=== PATIENT | female | born 1950 | race Caucasian/White ===

== ENCOUNTER 2018-03-27 10:13 | Day surgery (SDC) | payer MEDICARE, MEDICAID ==
[2018-03-27] MEDS ORDERED: Lactated Ringers 1,000 ML IV SCH (10:30)
[2018-03-27] MEDS: Cyclopentolate 1% Opth Soln 2 ML Bottle EYELF SCH ×3 (10:43→11:17)
[2018-03-27] MEDS: Phenylephrine 10% Ophth Soln 5 ML Bot EYELF SCH ×3 (10:48→11:22)
[2018-03-27] MEDS ORDERED: Moxifloxacin 0.5% Ophth Soln 3 ML Bottle EYELF ONE (11:00)
[2018-03-27] MEDS ORDERED: Sodium Chloride 0.9% 5 ML Syringe FLUSH PRN (11:15)
[2018-03-27] MEDS ORDERED: Water For Irrigation,Sterile 1,500 ML Container IRR ONE (12:09)
[2018-03-27] MEDS ORDERED: Balanced Salt Solution Ophth Irrig 15 ML Bottle EYELF ONE (12:09)
[2018-03-27] MEDS ORDERED: Balanced Salt Solution Plus Ophth Irrig 500 ML Bottle IOCULAR ONE (12:09)
[2018-03-27] MEDS ORDERED: Carbachol 0.01% Intraocular 1.5 ML Vial EYELF ONE (12:10)
[2018-03-27] MEDS ORDERED: EPINEPHrine 1 MG/ML SDV ONE (12:10)
[2018-03-27] MEDS ORDERED: Lidocaine 1% 10 ML MDV INJECT ONE (12:12)
[2018-03-27] MEDS ORDERED: Dexamethasone/Neomycin/Polymyxin B Ophth Oint 3.5 GM Tube EYELF ONE (12:12)
[2018-03-27] MEDS ORDERED: Lidocaine 2% with EPINEPHrine 1:100,000 20 ML MDV INJECT ONE (12:12)
[2018-03-27] MEDS ORDERED: Tetracaine HCl/PF 0.5% 4 ML Bottle EYEBOTH ONE (12:13)
[2018-03-27] MEDS ORDERED: Hyaluronate Sodium 1% 0.85 ML Syringe IOCULAR ONE (12:13)
--- NOTE | 2018-03-28 09:03 | OR ---
DATE OF SURGERY: 03/27/2018 SURGEON: Hu Casanova MD PREOPERATIVE DIAGNOSIS: Cataract, left eye. POSTOPERATIVE DIAGNOSIS: Cataract, left eye. OPERATION PERFORMED: Phacoemulsification with posterior chamber lens insertion, left eye. HISTORY: The patient presents at this time with blurred vision of the left eye, states that she is having difficulty seeing to drive. The vision for the left eye is 20/100 -1. The left lens has a 3+ nuclear sclerosis with 2+ cortical change and a 2+ posterior subcapsular cataract findings as well. 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 FINDINGS: The patient was taken to the operating room where appropriate anesthesia, sedation and monitoring were provided. A retrobulbar block was given on the left side. The eye was massaged and was found to be appropriately soft. The eye and eyelids were then prepped and draped in the usual sterile manner. A lid speculum was placed. A micro sharp blade was used to enter the anterior chamber inside the limbus inferior-temporally. Xylocaine was irrigated into the eye at this site. Healon was irrigated into the eye through this site. Then using a 2.85 mm corneal blade an entry was made into the anterior chamber just inside the limbus temporally. Healon was again irrigated into the eye. Then using a cystitome, the anterior capsulorrhexis was created. The lens nucleus was hydrodissected using a 27 gauge cannula and balanced salt solution. The phacoemulsification unit was introduced through the temporal site and the Yuriy spatula through the inferior temporal site. In so doing, the lens nucleus was phacoemulsified. The cortical fragments of the lens were removed using the irrigation aspiration unit. The posterior capsule was polished. Healon was irrigated into the eye. The posterior chamber lens was inserted and rotated into position inside the capsular bag. The Healon was irrigated out of the eye. Miostat was irrigated into the eye and the pupil rounded nicely. A single interrupted 10-0 Nylon suture was placed through the temporal corneal incision site. Balanced salt solution was irrigated into the eye. The wound was tested and found to be tight. Maxitrol ointment was placed into the patient's left eye. The eyelids were closed and an eye patch and burgos shield were placed. The patient left the operating room in good condition. /[id number]/MODL
== END 2018-03-27 13:05 | disposition home or self-care (01) ==
LOC: KA.SDS 10:13
PROVIDERS: ATTEND Ophthalmology
DX: H26.9 Unspecified cataract (principal); M19.90 Unspecified osteoarthritis, unspecified site; K21.9 Gastro-esophageal reflux disease without esophagitis; I10 Essential (primary) hypertension; G47.00 Insomnia, unspecified; Z79.899 Other long term (current) drug therapy; Z87.891 Personal history of nicotine dependence
CPT/HCPCS: 00142; A9270-GY; C1780; J0171; J7120

== ENCOUNTER 2020-12-08 07:22 | Observation (INO) | payer MEDICARE, MEDICAID ==
[2020-12-08] MEDS ORDERED: Sodium Chloride 0.9% 1,000 ML IV ONE (08:01)
[2020-12-08 08:15] LABS: ANION GAP 15.3 mmol/L (5-15); CHLORIDE,CL 103 mmol/L (98-107); SODIUM,NA 139 mmol/L (136-145)
--- NOTE | 2020-12-08 08:15 | EDM.PDOC ---
ED HPI GENERAL MEDICAL PROBLEM - General Chief Complaint: General Stated Complaint: SHAKY/CHILLS Time Seen by Provider: 12/08/20 07:52 Source of Information: Reports: Patient History Limitations: Reports: No Limitations - History of Present Illness INITIAL COMMENTS - FREE TEXT/NARRATIVE: Patient presents with feeling "cold". She put extra blankets on her bed and bundled up but couldn't get warm. She says she keeps her house at 88 degrees. She doesn't think she has had a fever. She hasn't really been out of her house for two weeks. She often doesn't sleep well and gets up around 0200 to sit at her table and play games on her phone then go back to bed. She did that last night too. She doesn't drink enough water, mostly soda. - Related Data Allergies Allergy/AdvReac Type Severity Reaction Status Date / Time oxycodone Allergy Nausea and Verified 12/08/20 07:26 Vomiting Home Meds: Home Meds Naproxen 500 mg PO Q12H PRN 03/23/18 [History] Pantoprazole Sodium [Protonix] 40 mg PO ACBREAKFAST 03/23/18 [History] amLODIPine Besylate [Amlodipine Besylate] 10 mg PO DAILY 03/23/18 [History] atenoloL [Atenolol] 50 mg PO DAILY 03/23/18 [History] Past Medical History HEENT History: Reports: Cataract, Impaired Vision Cardiovascular History: Reports: Hypertension Gastrointestinal History: Reports: Chronic Diarrhea, GERD, Irritable Bowel Syndrome Musculoskeletal History: Reports: Other (See Below) Other Musculoskeletal History: scoliosis Neurological History: Reports: None - Past Surgical History Head Surgeries/Procedures: Reports: None HEENT Surgical History: Reports: None Cardiovascular Surgical History: Reports: None GI Surgical History: Reports: Cholecystectomy Neurological Surgical History: Reports: Scoliosis Musculoskeletal Surgical History: Reports: Other (See Below) Other Musculoskeletal Surgeries/Procedures:: 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 Social & Family History - Family History Family Medical History: No Pertinent Family History - Caffeine Use Caffeine Use: Reports: Coffee, Soda Other Caffeine Use: pepsi zero ED ROS GENERAL - Review of Systems Review Of Systems: See Below Constitutional: Reports: Chills. Denies: Fever HEENT: Denies: Ear Pain, Throat Pain, Vision Change Respiratory: Denies: Shortness of Breath, Cough Cardiovascular: Denies: Chest Pain, Lightheadedness, Syncope Endocrine: Denies: Fatigue GI/Abdominal: Reports: Diarrhea (chronic for 30 years). Denies: Abdominal Pain, Nausea, Vomiting : Denies: Dysuria Musculoskeletal: Reports: No Symptoms Skin: Denies: Cyanosis, Jaundice, Mottled, Pallor, Diaphoresis Neurological: Denies: Confusion, Dizziness, Headache, Seizure, Syncope, Trouble Speaking, Difficulty Walking Psychiatric: Denies: Agitation, Anxiety, Confusion ED EXAM, GENERAL - Physical Exam Exam: See Below Exam Limited By: No Limitations General Appearance: Alert, WD/WN, No Apparent Distress Eye Exam: Bilateral Eye: EOMI, Normal Inspection, PERRL Ears: Normal External Exam, Hearing Grossly Normal Nose: Normal Inspection, No Blood Throat/Mouth: Normal Lips, Normal Voice, No Airway Compromise, Other (missing several teeth) Head: Atraumatic, Normocephalic Neck: Normal Inspection, Full Range of Motion Respiratory/Chest: No Respiratory Distress, No Accessory Muscle Use, Crackles (slight in left base). No: Rhonchi, Wheezing, Stridor, Accessory Muscle Use Cardiovascular: Regular Rate, Rhythm, No Murmur Peripheral Pulses: 1+: Posterior Tibial (L), Posterior Tibial (R), 2+: Radial (L), Radial (R) GI/Abdominal: Normal Bowel Sounds, Soft, Non-Tender, No Organomegaly, No Distention, No Abnormal Bruit Back Exam: Normal Inspection, Full Range of Motion Extremities: Normal Inspection, Normal Range of Motion, Non-Tender, No Pedal Edema, Normal Capillary Refill Neurological: Alert, Oriented, Normal Cognition, No Motor/Sensory Deficits Psychiatric: Normal Affect, Normal Mood Skin Exam: Warm, Dry, Intact, Normal Color, No Rash Course - Vital Signs Last Recorded V/S: Last Vital Signs Temp 98.9 F 12/08/20 07:46 Pulse 93 12/08/20 09:32 Resp 22 H 12/08/20 09:32 BP 120/78 12/08/20 09:32 Pulse Ox 97 12/08/20 09:32 - Orders/Labs/Meds Orders: Active Orders 24 hr Category Date Time Status Patient Status [ADT] Routine ADT 12/08/20 10:42 Ordered EKG Documentation Completion [RC] ASDIRECTED Care 12/08/20 07:42 Active Chest 1V Frontal [CR] Routine Exams 12/08/20 Ordered Isolation [COMM] Routine Oth 12/08/20 08:09 Ordered EKG 12 Lead [EK] Stat Ther 12/08/20 07:42 Ordered Labs: Laboratory Tests 12/08/20 12/08/20 12/08/20 Range/Units 07:45 07:45 08:08 WBC 13.14 H (5.00-10.00) 10^3/uL RBC 4.87 (3.80-5.50) 10^6/uL Hgb 14.6 (12.0-16.0) g/dL Hct 44.6 (37.0-47.0) % MCV 91.6 (82.0-92.0) fL MCH 30.0 (27.0-31.0) pg MCHC 32.7 (32.0-36.0) g/dL RDW 13.2 (11.5-14.5) % Plt Count 284 (150-400) 10^3/uL MPV 10.0 (7.4-10.4) fL Immature Gran % (Auto) 0.2 (0.0-5.0) % Neut % (Auto) 70.1 H (50.0-70.0) % Lymph % (Auto) 20.2 (20.0-40.0) % [place] % (Auto) 6.8 (2.0-8.0) % Eos % (Auto) 2.4 (1.0-3.0) % Baso % (Auto) 0.3 (0.0-1.0) % Neut # (Auto) 9.22 H (2.50-7.00) 10^3/uL Lymph # (Auto) 2.66 (1.00-4.00) 10^3/uL [place] # (Auto) 0.89 H (0.10-0.80) 10^3/uL Eos # (Auto) 0.31 H (0.10-0.30) 10^3/uL Baso # (Auto) 0.04 (0.00-0.10) 10^3/uL Immature Gran # (Auto) 0.02 (0.00-0.50) 10^3/uL Sodium 139 (136-145) mmol/L Potassium 3.2 L (3.5-5.1) mmol/L Chloride 103 (98-107) mmol/L Carbon Dioxide 23.9 (21.0-32.0) mmol/L Anion Gap 15.3 H (5-15) mmol/L BUN 12 (7-18) mg/dL Creatinine 0.70 (0.51-1.17) mg/dL Est Cr Clr Drug Dosing 55.25 mL/min Estimated GFR (MDRD) > 60 mL/min Glucose 128 (70-140) mg/dL Calcium 9.0 (8.7-10.3) mg/dL Specimen Type Urine Color (YELLOW) Urine Appearance (CLEAR) Urine pH (5.0-9.0) Ur Specific [place] (1.005-1.030) Urine Protein (NEGATIVE) mg/dL Urine Glucose (UA) (NEGATIVE) mg/dL Urine Ketones (NEGATIVE) mg/dL Urine Occult Blood (NEGATIVE) Urine Nitrite (NEGATIVE) Urine Bilirubin (NEGATIVE) Urine Urobilinogen (0.2-1.0) E.U./dL Ur Leukocyte Esterase (NEGATIVE) Urine RBC (0-5) /HPF Urine WBC (0-5) /HPF Ur Epithelial Cells /LPF Urine Bacteria (NONE TO FEW) /HPF Urine Mucus (NEGATIVE) /LPF SARS CoV-2 RNA Rapid ANASTASIIA Negative (NEGATIVE) 12/08/20 Range/Units 09:10 WBC (5.00-10.00) 10^3/uL RBC (3.80-5.50) 10^6/uL Hgb (12.0-16.0) g/dL Hct (37.0-47.0) % MCV (82.0-92.0) fL MCH (27.0-31.0) pg MCHC (32.0-36.0) g/dL RDW (11.5-14.5) % Plt Count (150-400) 10^3/uL MPV (7.4-10.4) fL Immature Gran % (Auto) (0.0-5.0) % Neut % (Auto) (50.0-70.0) % Lymph % (Auto) (20.0-40.0) % [place] % (Auto) (2.0-8.0) % Eos % (Auto) (1.0-3.0) % Baso % (Auto) (0.0-1.0) % Neut # (Auto) (2.50-7.00) 10^3/uL Lymph # (Auto) (1.00-4.00) 10^3/uL [place] # (Auto) (0.10-0.80) 10^3/uL Eos # (Auto) (0.10-0.30) 10^3/uL Baso # (Auto) (0.00-0.10) 10^3/uL Immature Gran # (Auto) (0.00-0.50) 10^3/uL Sodium (136-145) mmol/L Potassium (3.5-5.1) mmol/L Chloride (98-107) mmol/L Carbon Dioxide (21.0-32.0) mmol/L Anion Gap (5-15) mmol/L BUN (7-18) mg/dL Creatinine (0.51-1.17) mg/dL Est Cr Clr Drug Dosing mL/min Estimated GFR (MDRD) mL/min Glucose (70-140) mg/dL Calcium (8.7-10.3) mg/dL Specimen Type Urinvoid Urine Color Yellow (YELLOW) Urine Appearance Clear (CLEAR) Urine pH 7.0 (5.0-9.0) Ur Specific [place] 1.020 (1.005-1.030) Urine Protein Negative (NEGATIVE) mg/dL Urine Glucose (UA) Negative (NEGATIVE) mg/dL Urine Ketones Negative (NEGATIVE) mg/dL Urine Occult Blood Trace-intact H (NEGATIVE) Urine Nitrite Negative (NEGATIVE) Urine Bilirubin Negative (NEGATIVE) Urine Urobilinogen 0.2 (0.2-1.0) E.U./dL Ur Leukocyte Esterase Negative (NEGATIVE) Urine RBC 5-10 H (0-5) /HPF Urine WBC 5-10 H (0-5) /HPF Ur Epithelial Cells Moderate H /LPF Urine Bacteria Few (NONE TO FEW) /HPF Urine Mucus Rare H (NEGATIVE) /LPF SARS CoV-2 RNA Rapid ANASTASIIA (NEGATIVE) Meds: Medications Discontinued Medications Generic Name Dose Route Start Last Admin Trade Name Freq PRN Reason Stop Dose Admin Sodium Chloride 1,000 mls @ 999 mls/hr 12/08/20 08:01 12/08/20 07:50 Normal Saline IV 12/08/20 09:01 999 mls/hr .BOLUS ONE Administration - Re-Assessments/Exams Free Text/Narrative Re-Assessment/Exam: 12/08/20 08:15 A few minutes after arrival, patient was sitting on the bedside commode talking with the nurse. Abruptly, the nurse noticed she stopped talking and slowly slumped to one side. She didn't respond so tried a sternal rub and pushed the code button for help. Sats, pulse and breathing remained stable. Patient slowly came around to responding again after about a minute. This was just before I arrived and patient has been alert and responsive since then. 12/08/20 08:21 EKG is NSR. 12/08/20 09:03 CXR shows no acute process. 12/08/20 10:38 UA is normal. Head CT is negative for acute pathology. I discussed case with Dr. Moss who agrees with plan to admit for observation. Discussed findings and plan with patient who agrees as well. She is stable. 12/08/20 10:44 Please use this for admission H and P. Departure - Departure Time of Disposition: 10:37 Disposition: Refer to Observation Condition: Good Clinical Impression: Chills (without fever), Unresponsive episode Leukocytosis, unspecified Qualifiers: Leukocytosis type: unspecified Qualified Code(s): D72.829 - Elevated white blood cell count, unspecified - Discharge Information Referrals: Maggie Gilliam MD [Primary Care Provider] - Forms: ED Department Discharge Sepsis Event Note (ED) - Evaluation Sepsis Screening Result: No Definite Risk - Focused Exam Vital Signs: Vital Signs Temp Temp Pulse Resp BP BP Pulse Ox 12/08/20 09:32 93 22 H 120/78 97 12/08/20 09:15 83 123/61 12/08/20 08:48 89 17 110/46 L 91 L 12/08/20 08:30 83 20 125/59 L 96 12/08/20 08:16 81 20 121/64 95 12/08/20 08:00 88 17 110/67 94 L 12/08/20 07:46 98.9 F 91 20 88/47 L 93 L 12/08/20 07:30 108 H 22 H 103/73 12/08/20 07:26 96.6 F L 110 H 18 99/57 L 96 - My Orders Last 24 Hours: My Active Orders 12/08/20 Chest 1V Frontal [CR] Routine 12/08/20 07:42 EKG Documentation Completion [RC] ASDIRECTED EKG 12 Lead [EK] Stat 12/08/20 08:09 Isolation [COMM] Routine 12/08/20 10:42 Patient Status [ADT] Routine - Assessment/Plan Last 24 Hours: My Active Orders 12/08/20 Chest 1V Frontal [CR] Routine 12/08/20 07:42 EKG Documentation Completion [RC] ASDIRECTED EKG 12 Lead [EK] Stat 12/08/20 08:09 Isolation [COMM] Routine 12/08/20 10:42 Patient Status [ADT] Routine
--- NOTE | 2020-12-08 09:48 | CT ---
[id number] CT/CT Head WO IV EXAM: CT Head WO IV CLINICAL DATA: UNRESPONSIVE EPISODE COMPARISON: CORRELATION IS MADE WITH THE MRI OF 2004 FINDINGS: There is no mass or mass effect. There is no hemorrhage or hydrocephalus. There are no extra-axial fluid collections. There are no sites of abnormal attenuation. IMPRESSION: NO PLAIN CT EVIDENCE OF ACUTE INTRACRANIAL PROCESS. Aroldo Nick MD 12/08/20 [id number] Thank you for allowing us to participate in the care of your patient.
[2020-12-08] MEDS: Sodium Chloride 0.9% 1,000 ML IV SCH ×2 (11:32→20:21)
[2020-12-08] MEDS ORDERED: Loratadine 10 MG Tab PO ONE (17:38)
[2020-12-09] MEDS: Sodium Chloride 0.9% 1,000 ML IV SCH (04:28)
[2020-12-09] MEDS: Pantoprazole 40 MG Tab.CR ** OWN MED PO SCH ×2 (06:24→06:32)
[2020-12-09 07:43] LABS: ANION GAP 12.3 mmol/L (5-15); CHLORIDE,CL 108 mmol/L (98-107); SODIUM,NA 142 mmol/L (136-145)
[2020-12-09] MEDS ORDERED: Potassium Chloride 20 MEQ Tab.ER PO ONE (08:50)
[2020-12-09] MEDS ORDERED: AMLODIPINE BESYLATE 10 MG PO SCH (09:00)
[2020-12-09] MEDS ORDERED: ATENOLOL 50 MG PO SCH (09:00)
--- NOTE | 2020-12-09 09:09 | PCM.DCSUM1 ---
Discharge Summary - Hospital Course Free Text/Narrative:: Admission Date: 12/08/2020 Discharge Date: 12/09/2020 Disposition: Home, Self Care Admission Diagnoses: Chills Leukocytosis Unresponsive episode Hypokalemia Discharge Diagnoses: Chills - Resolved Leukocytosis - Resolved, no evidence of infection. Unresponsive episode - No further occurrence, telemetry unremarkable - Bilateral carotid artery U/S results pending at time of discharge Hypokalemia - Given one dose of potassium chloride 40 mEq PO x 1 dose prior to discharge - Will follow-up with [facility] as outpatient Secondary Diagnoses: HTN - Continue amlodipine 10 mg PO daily - Continue atenolol 50 mg PO daily Acid Reflux - Continue pantoprazole 40 mg PO daily Osteoarthritis - Continue naproxen 500 mg PO BID PRN Medication Changes: None CODE STATUS: Full Code Hospital Course: Devi presented to the emergency department on 12/08 for chills. She states she has had chills off and on for the past several months but nothing as severe as it was on 12/08. She noted some dizziness, which is chronic, but no other symptoms. In the ER, prior to evaluation by provider, she was sitting on the commode, not straining, and had an unresponsive episode where she slumped over to the side for approximately 10 seconds. She reportedly did not respond to sternal rub. She quickly came to. She was breathing and had a pulse during the entire episode. When I asked her about this episode she states "I just got real tired and thought to myself 'I should just go to sleep' and the next thing I knew I was waking up". No focal deficits. In the ER she was noted to have a leukocytosis of 13 without fever. CXR negative, UA negative, COVID negative, influenza A/B negative. EKG NSR. Head CT negative. Potassium slightly low at 3.2. She was started on IVF's and admitted on telemetry for observation due to the unresponsive episode. Overnight there was no issues. Telemetry unremarkable. She states she was up nearly every hours to urinate due to the IVF's. No further unresponsive episodes. She is a former smoker, having quit around 3-4 years ago. She will have bilateral carotid artery U/S prior to discharge. Diagnosis: Stroke: No Modified [place] Scale: No Symptoms at All Modified Mauro Scale Score: 0 - Discharge Data Discharge Date: 12/09/20 Discharge Disposition: Home, Self-Care 01 Condition: Good - Referral to Home Health Primary Care Physician: Maggie Gilliam MD - Patient Summary/Data Labs Pending at D/C: Carotid Artery U/S. - Patient Instructions Diet: Regular Diet as Tolerated Activity: Rest and Relax Today - Discharge Plan *PRESCRIPTION DRUG MONITORING PROGRAM REVIEWED*: Not Applicable *COPY OF PRESCRIPTION DRUG MONITORING REPORT IN PATIENT MATTHEW: Not Applicable Home Medications: Home Meds Naproxen 500 mg PO Q12H PRN 03/23/18 [History] Pantoprazole Sodium [Protonix] 40 mg PO ACBREAKFAST 03/23/18 [History] amLODIPine Besylate [Amlodipine Besylate] 10 mg PO DAILY 03/23/18 [History] atenoloL [Atenolol] 50 mg PO DAILY 03/23/18 [History] Forms: ED Department Discharge Referrals: Maggie Gilliam MD [Primary Care Provider] - - Discharge Summary/Plan Comment DC Time >30 min.: No - Patient Data Vitals - Most Recent: Last Vital Signs Temp 98.3 F 12/09/20 07:00 Pulse 89 12/09/20 07:00 Resp 16 12/09/20 07:00 BP 121/63 12/09/20 07:00 Pulse Ox 95 12/09/20 07:00 Weight - Most Recent: 141 lb I&O - Last 24 hours: Intake & Output 12/08/20 12/09/20 12/09/20 22:59 06:59 14:59 Intake Total 1700 1228 Output Total 1900 Balance -200 1228 Lab Results - Last 24 hrs: Laboratory Results - last 24 hr 12/08/20 12/09/20 12/09/20 Range/Units 09:10 07:14 07:14 WBC 7.75 (5.00-10.00) 10^3/uL RBC 4.17 (3.80-5.50) 10^6/uL Hgb 12.7 D (12.0-16.0) g/dL Hct 38.9 (37.0-47.0) % MCV 93.3 H (82.0-92.0) fL MCH 30.5 (27.0-31.0) pg MCHC 32.6 (32.0-36.0) g/dL RDW 13.4 (11.5-14.5) % Plt Count 217 (150-400) 10^3/uL MPV 9.7 (7.4-10.4) fL Immature Gran % (Auto) 0.0 (0.0-5.0) % Neut % (Auto) 65.3 (50.0-70.0) % Lymph % (Auto) 24.1 (20.0-40.0) % [place] % (Auto) 8.3 H (2.0-8.0) % Eos % (Auto) 1.9 (1.0-3.0) % Baso % (Auto) 0.4 (0.0-1.0) % Neut # (Auto) 5.06 (2.50-7.00) 10^3/uL Lymph # (Auto) 1.87 (1.00-4.00) 10^3/uL [place] # (Auto) 0.64 (0.10-0.80) 10^3/uL Eos # (Auto) 0.15 (0.10-0.30) 10^3/uL Baso # (Auto) 0.03 (0.00-0.10) 10^3/uL Immature Gran # (Auto) 0.00 (0.00-0.50) 10^3/uL Sodium 142 (136-145) mmol/L Potassium 3.2 L (3.5-5.1) mmol/L Chloride 108 H (98-107) mmol/L Carbon Dioxide 24.9 (21.0-32.0) mmol/L Anion Gap 12.3 (5-15) mmol/L BUN 4 L (7-18) mg/dL Creatinine 0.53 (0.51-1.17) mg/dL Est Cr Clr Drug Dosing 72.97 mL/min Estimated GFR (MDRD) > 60 mL/min Glucose 91 (70-140) mg/dL Calcium 8.3 L (8.7-10.3) mg/dL Specimen Type Urinvoid Urine Color Yellow (YELLOW) Urine Appearance Clear (CLEAR) Urine pH 7.0 (5.0-9.0) Ur Specific [place] 1.020 (1.005-1.030) Urine Protein Negative (NEGATIVE) mg/dL Urine Glucose (UA) Negative (NEGATIVE) mg/dL Urine Ketones Negative (NEGATIVE) mg/dL Urine Occult Blood Trace-intact H (NEGATIVE) Urine Nitrite Negative (NEGATIVE) Urine Bilirubin Negative (NEGATIVE) Urine Urobilinogen 0.2 (0.2-1.0) E.U./dL Ur Leukocyte Esterase Negative (NEGATIVE) Urine RBC 5-10 H (0-5) /HPF Urine WBC 5-10 H (0-5) /HPF Ur Epithelial Cells Moderate H /LPF Urine Bacteria Few (NONE TO FEW) /HPF Urine Mucus Rare H (NEGATIVE) /LPF DIOMEDES Results - Last 24 hrs: Microbiology 12/08/20 08:08 Influenza Type A Antigen Screen - Final Nasal Aspirate, Unspecified NEGATIVE INFLUENZA A VIRUS AG REFERENCE RANGE: NEGATIVE Influenza Type B Antigen Screen - Final NEGATIVE INFLUENZA B VIRUS AG REFERENCE RANGE: NEGATIVE Med Orders - Current: Current Medications Amlodipine Besylate (10 Mg Own Med ) 10 mg PO DAILY [facility] Atenolol 50 Mg (Own Med ) 50 mg PO DAILY [facility] Naproxen [Naproxen] (500 Mg) 500 mg PO Q12H PRN PRN Reason: Pain Pantoprazole Sodium (Protonix) 40 mg PO ACBREAKFAST [facility] Last Admin: 12/09/20 06:32 Dose: Not Given Documented by: Discontinued Medications Sodium Chloride (Normal Saline) 1,000 mls @ 999 mls/hr IV .BOLUS ONE Stop: 12/08/20 09:01 Last Admin: 12/08/20 07:50 Dose: 999 mls/hr Documented by: Sodium Chloride (Normal Saline) 1,000 mls @ 125 mls/hr IV ASDIRECTED [facility] Last Admin: 12/09/20 04:28 Dose: 125 mls/hr Documented by: Loratadine (Claritin) 10 mg PO ONETIME ONE Stop: 12/08/20 17:39 Last Admin: 12/08/20 18:09 Dose: 10 mg Documented by: Potassium Chloride (Klor-Con M20) 40 meq PO ONETIME ONE Stop: 12/09/20 08:51 - Exam General: Reports: Alert, Oriented, Cooperative, No Acute Distress Lungs: Reports: Clear to Auscultation, Normal Respiratory Effort Cardiovascular: Reports: Regular Rate, Regular Rhythm, No Murmurs GI/Abdominal Exam: Normal Bowel Sounds Extremities: No Pedal Edema
--- NOTE | 2020-12-09 12:33 | US ---
[id number] US/US Carotid Bilateral EXAM: Bilateral carotid ultrasound. Clinical data: UNRESPONSIVE EPISODE.. COMPARISON STUDY: None FINDINGS: Velocity measurements in cm/sec: Peak systolic CCA: 81.1 right, 80.9 left. Peak systolic ICA: 99.5 right, 279.8 left. Systolic ICA/CCA ratio: 1.2 right, 3.5 left. Vertebral artery flow is antegrade bilaterally. Scattered bilateral carotid plaque with no hemodynamically significant stenosis identified. IMPRESSION: 1. Greater than 70% stenosis involving the left internal carotid artery by peak velocity. 2. Both vertebral arteries are antegrade. Mulugeta Conway DO 12/09/20 1232 Thank you for allowing us to participate in the care of your patient.
== END 2020-12-09 13:35 | disposition home or self-care (01) ==
LOC: KA.ED 07:22 → KA.MS 10:42
PROVIDERS: ADMIT Internal Medicine; ATTEND Internal Medicine
DX: R68.83 Chills (without fever) (principal); I65.23 Occlusion and stenosis of bilateral carotid arteries; D72.829 Elevated white blood cell count, unspecified; E87.6 Hypokalemia; Z20.822 Contact with and (suspected) exposure to COVID-19; I10 Essential (primary) hypertension; M19.90 Unspecified osteoarthritis, unspecified site; K21.9 Gastro-esophageal reflux disease without esophagitis; K58.0 Irritable bowel syndrome with diarrhea; M41.9 Scoliosis, unspecified; Z88.6 Allergy status to analgesic agent; Z87.891 Personal history of nicotine dependence; Z79.899 Other long term (current) drug therapy; Z98.890 Other specified postprocedural states
CPT/HCPCS: 36415; 70450; 71045; 80048; 81001; 85025; 87804; 93005; 93880; 99217; 99220; 99285; A9270; G0378; J7030; U0002

== ENCOUNTER 2023-07-18 10:38 | Day surgery (SDC) | payer MEDICARE, MEDICAID ==
[2023-07-18] MEDS ORDERED: Propofol 200 MG/20 ML SDV IV ONE (10:39)
[2023-07-18] MEDS ORDERED: Sodium Chloride 0.9% 10 ML Syringe FLUSH PRN (11:00)
[2023-07-18] MEDS ORDERED: Lactated Ringers 1,000 ML IV SCH (11:00)
[2023-07-18] MEDS ORDERED: Propofol 200 MG/20 ML SDV ONE ×2 (11:43→11:55)
[2023-07-18] MEDS ORDERED: Midazolam 1 MG/ML 2 ML SDV ONE (11:43)
== END 2023-07-18 15:25 | disposition home or self-care (01) ==
LOC: KA.SDS 10:38
PROVIDERS: ATTEND Surgery
DX: D12.5 Benign neoplasm of sigmoid colon (principal); K52.9 Noninfective gastroenteritis and colitis, unspecified; K57.30 Diverticulosis of large intestine without perforation or abscess without bleeding; K64.8 Other hemorrhoids; K64.4 Residual hemorrhoidal skin tags; M25.551 Pain in right hip; Z88.8 Allergy status to other drugs, medicaments and biological substances; Z79.82 Long term (current) use of aspirin; Z79.899 Other long term (current) drug therapy; Z88.5 Allergy status to narcotic agent
CPT/HCPCS: 00811; 88305; J2250; J2704; J7120

== ENCOUNTER 2023-09-11 23:03 | Emergency (ER) | payer MEDICARE, MEDICAID ==
[2023-09-11] MEDS: Lidocaine 2% 5 ML SDV INJECT ONE (23:45)
[2023-09-11] MEDS: Diphtheria,Pertussis(Acell),Tetanus Vaccine 0.5 ML Syringe IM ONE (23:52)
[2023-09-11] MEDS: Bacitracin/Neomycin/Polymyxin B Oint 0.9 GM U/D Packet TOP ONE ×2 (23:57→23:58)
== END 2023-09-12 00:01 | disposition home or self-care (01) ==
LOC: KA.ED 23:03
DX: S61.011A Laceration without foreign body of right thumb without damage to nail, initial encounter (principal); I10 Essential (primary) hypertension; K21.9 Gastro-esophageal reflux disease without esophagitis; Z87.891 Personal history of nicotine dependence; Z88.5 Allergy status to narcotic agent; Z23 Encounter for immunization; Z88.8 Allergy status to other drugs, medicaments and biological substances; W26.8XXA Contact with other sharp object(s), not elsewhere classified, initial encounter
CPT/HCPCS: 12001; 90471; 90715; 99282-25; J3490